=== PATIENT | female | born 1990 | race Caucasian/White ===

== ENCOUNTER 2019-08-03 04:15 | Emergency (ER) | payer BC ==
[~2019-08-03] VITALS: Ht 152.4 cm; Wt 89.0 kg
[2019-08-03 06:16] VITALS: BP 120/68
== END 2019-08-03 06:16 | disposition home or self-care (01) ==
LOC: ED 04:15
DX: S29.012A Strain of muscle and tendon of back wall of thorax, initial encounter (principal); X50.0XXA Overexertion from strenuous movement or load, initial encounter; Y93.89 Activity, other specified; Y92.89 Other specified places as the place of occurrence of the external cause; Y99.0 Civilian activity done for income or pay
CPT/HCPCS: J1885

== ENCOUNTER 2020-07-23 19:02 | Emergency (ER) | payer BC ==
[~2020-07-23] VITALS: Ht 154.9 cm; Wt 85.7 kg
[2020-07-23 19:06] VITALS: Ht 154.9 cm; Wt 85.7 kg
[2020-07-23 20:36] VITALS: BP 133/93
== END 2020-07-23 20:36 | disposition home or self-care (01) ==
LOC: ED 19:02
DX: S61.304A Unspecified open wound of right ring finger with damage to nail, initial encounter (principal); W22.8XXA Striking against or struck by other objects, initial encounter; Y93.89 Activity, other specified; Y92.89 Other specified places as the place of occurrence of the external cause; Y99.8 Other external cause status
CPT/HCPCS: J2001